=== PATIENT | female | born 1995 | race Caucasian/White ===

== ENCOUNTER 2017-05-05 09:54 | Emergency (ER) | payer OTHER ==
--- NOTE | 2017-05-05 10:37 | ER ---
Nurse's Notes [facility] Name: Debbie Walters Age: 21 yrs Sex: Female : 1995 Arrival Date: 05/05/2017 Time: 09:59 Bed 16 Private MD: Diagnosis: Cellulitis and acute lymphangitis, unspecified;Abrasion, left lower leg;Cystitis Presentation: 05/05 10:09 Presenting complaint: Patient states: pt reports playing softball on Thursday, slid and jl7 got an abrasion to LLE. Area started swelling yesterday. Transition of care: patient was not received from another setting of care. Onset of symptoms was May 03, 2017. Care prior to arrival: Medication(s) given: Aleve at 0900. 10:09 Method Of Arrival: Ambulatory jl7 10:09 Acuity: TRAE 4 jl7 Triage Assessment: 10:05 General: Appears in no apparent distress. uncomfortable, Behavior is calm, cooperative, jl7 appropriate for age. Pain: Complains of pain in left lateral ankle Pain does not radiate. Pain currently is 5 out of 10 on a pain scale. Quality of pain is described as throbbing, Pain began 2-3 days ago. Is continuous, Aggravated by weight bearing. Neuro: Level of Consciousness is awake, alert, obeys commands, Oriented to person, place, time, situation. Cardiovascular: Patient's skin is warm and dry. Respiratory: Airway is patent Respiratory effort is even, unlabored, Respiratory pattern is regular, symmetrical. Derm: Skin is pink, warm \T\ dry. Musculoskeletal: Range of motion: limited in left ankle. Injury Description: Abrasion sustained to lateral aspect of left calf and left lateral ankle is scabbed, mild oozing noted to lower abrasion. Redness, swelling and heat noted to left ankle. DRAGGER OUT: 10:08 LMP 04/23/2017 jl7 Historical: - Allergies: 10:12 No Known Allergies; jl7 - Home Meds: 10:12 None [Active]; jl7 - PMHx: 10:12 None; jl7 - PSHx: 10:12 Cholecystectomy; jl7 - Immunization history:: Adult Immunizations up to date, Last tetanus immunization: unknown. - Social history:: Smoking status: Patient/guardian denies using tobacco, Patient uses alcohol, only on a social basis. Screenin:13 Abuse screen: Denies threats or abuse. Denies injuries from another. Nutritional jtb screening: No deficits noted. Tuberculosis screening: No symptoms or risk factors identified. Fall Risk None identified. Assessment: 10:13 General: Appears in no apparent distress. comfortable, Behavior is calm, cooperative, jtb appropriate for age. Pain: Complains of pain in left lateral ankle Pain radiates to left foot Pain currently is 3 out of 10 on a pain scale. at worst was 5 out of 10 on a pain scale. Quality of pain is described as dull, throbbing, Pain began 1 day ago. Is continuous, Alleviated by rest. Neuro: Level of Consciousness is awake, alert, obeys commands, Oriented to person, place, time, situation. Cardiovascular: Patient's skin is warm and dry. Respiratory: Airway is patent Respiratory effort is even, unlabored, Respiratory pattern is regular, symmetrical. GI: No signs and/or symptoms were reported involving the gastrointestinal system. : No signs and/or symptoms were reported regarding the genitourinary system. EENT: No signs and/or symptoms were reported regarding the EENT system. Derm: Skin is pink, warm \T\ dry. Musculoskeletal: Range of motion: limited in left ankle. Injury Description: Abrasion sustained to lateral aspect of left calf and left lateral ankle is scabbed, Redness, swelling, heat, and oozing noted. 11:03 Reassessment: Patient and/or family updated on plan of care and expected duration. Pain jtb level reassessed. Patient is alert, oriented x 3, equal unlabored respirations, skin warm/dry/pink. Patient states feeling better. Vital Signs: 10:08 BP 126 / 86; Pulse 96; Resp 16 S; Temp 97.5(O); Pulse Ox 100% on R/A; Weight 54.88 kg jl7 (R); Height 5 ft. 0 in. (152.40 cm) (R); Pain 5/10; 11:03 BP 101 / 57; Pulse 77; Resp 16 S; Pulse Ox 100% on R/A; Pain 3/10; jtb 10:08 Body Mass Index 23.63 (54.88 kg, 152.40 cm) jl7 ED Course: 09:59 Patient arrived in ED. mr 10:08 Arm band placed on right wrist. jl7 10:09 Rebolledo, Jahala, RN is Primary Nurse. jl7 10:11 Triage completed. jl7 10:13 Jasper Scott MD is Attending Physician. [facility] 10:13 Patient has correct armband on for positive identification. Bed in low position. Call jtb light in reach. Side rails up X 1. Pulse ox on. NIBP on. 10:35 Giuseppe Hill MD is Referral Physician. kevin 11:11 No provider procedures requiring assistance completed. Patient did not have IV access jtb during this emergency room visit. Administered Medications: 10:27 CANCELLED (Duplicate Order): KeFLEX 500 mg PO once kevin 10:40 CANCELLED (Duplicate Order): Clindamycin 300 mg PO once kevin 10:49 Drug: Doxycycline 200 mg Route: PO; jl7 11:00 Follow up: Response: No adverse reaction; Medication administered at discharge. jl7 10:51 Drug: Augmentin 875 mg Route: PO; jl7 11:00 Follow up: Response: Medication administered at discharge. jl7 10:52 Drug: Bactroban Ointment 2 % 1 application Route: Topical; Site: affected area; jl7 15:10 Follow up: Response: No adverse reaction; Medication administered at discharge. jl7 Outcome: 10:36 Discharge ordered by . kevin 11:11 Discharged to home ambulatory. jtb 11:11 Condition: stable 11:11 Discharge instructions given to patient, Instructed on discharge instructions, follow up and referral plans. medication usage, Demonstrated understanding of instructions, follow-up care, medications, Prescriptions given X 4. 11:12 Patient left the ED. jtb 11:12 Attestation : I agree with everything documented by Sean Rivera, Student Nurse. jl7 Signatures: Jasper Scott MD MD cha Rivera, Maria mr Prashanth Rebolledo, RN RN Sean Perry Corrections: (The following items were deleted from the chart) 10:24 10:13 Injury Description: Abrasion sustained to lateral aspect of left calf and left jl7 lateral ankle is scabbed, jtb 10:28 10:13 Musculoskeletal: No signs and/or symptoms reported regarding the musculoskeletal jtb system. jtb 10:28 10:13 Injury Description: Abrasion sustained to lateral aspect of left calf and left jtb lateral ankle is scabbed, jl7
--- NOTE | 2017-05-05 10:37 | EDPHYS ---
Physician Documentation [facility] Name: Debbie Walters Age: 21 yrs Sex: Female : 1995 Arrival Date: 05/05/2017 Time: 09:59 Bed 16 Private MD: ED Physician Jasper Scott HPI: 05/05 10:33 This 21 yrs old Female presents to ER via Ambulatory with complaints of Wound kevin Infection. 10:33 The patient presents to the emergency department after a known overdose. 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 - Social history:: Smoking status: Patient/guardian denies using tobacco, Patient uses alcohol, only on a social basis. ROS: 10:33 Constitutional: Negative for fever, chills, and weight loss, Eyes: Negative for injury, kevin pain, redness, and discharge, ENT: Negative for injury, pain, and discharge, Neck: Negative for injury, pain, and swelling, Cardiovascular: Negative for chest pain, palpitations, and edema, Respiratory: Negative for shortness of breath, cough, wheezing, and pleuritic chest pain, Abdomen/GI: Negative for abdominal pain, nausea, vomiting, diarrhea, and constipation, Back: Negative for injury and pain, : Negative for injury, bleeding, discharge, and swelling, Neuro: Negative for headache, weakness, numbness, tingling, and seizure, Psych: Negative for depression, anxiety, suicide ideation, homicidal ideation, and hallucinations, Allergy/Immunology: Negative for hives, rash, and allergies, Endocrine: Negative for neck swelling, polydipsia, polyuria, polyphagia, and marked weight changes, Hematologic/Lymphatic: Negative for swollen nodes, abnormal bleeding, and unusual bruising. 10:33 MS/extremity: Positive for abrasion, pain, swelling, tenderness, of the lateral aspect of left calf, left lateral ankle, lateral aspect of left foot and anterior aspect of left ankle. Exam: 10:33 Constitutional: This is a well developed, well nourished patient who is awake, alert, kevin and in no acute distress. Head/Face: Normocephalic, atraumatic. Eyes: Pupils equal round and reactive to light, extra-ocular motions intact. Lids and lashes normal. Conjunctiva and sclera are non-icteric and not injected. Cornea within normal limits. Periorbital areas with no swelling, redness, or edema. ENT: Nares patent. No nasal discharge, no septal abnormalities noted. Tympanic membranes are normal and external auditory canals are clear. Oropharynx with no redness, swelling, or masses, exudates, or evidence of obstruction, uvula midline. Mucous membranes moist. Neck: Trachea midline, no thyromegaly or masses palpated, and no cervical lymphadenopathy. Supple, full range of motion without nuchal rigidity, or vertebral point tenderness. No Meningismus. Chest/axilla: Normal chest wall appearance and motion. Nontender with no deformity. No lesions are appreciated. Cardiovascular: Regular rate and rhythm with a normal S1 and S2. No gallops, murmurs, or rubs. Normal PMI, no JVD. No pulse deficits. Respiratory: Lungs have equal breath sounds bilaterally, clear to auscultation and percussion. No rales, rhonchi or wheezes noted. No increased work of breathing, no retractions or nasal flaring. Abdomen/GI: Soft, non-tender, with normal bowel sounds. No distension or tympany. No guarding or rebound. No evidence of tenderness throughout. Back: No spinal tenderness. No costovertebral tenderness. Full range of motion. Pelvic Exam: Normal external genitalia. Speculum exam with closed cervical os, no discharge or bleeding noted. Bimanual exam with normal adnexa, no adnexal or cervical motion tenderness. Normal uterus. Female : Normal external genitalia. Neuro: Awake and alert, GCS 15, oriented to person, place, time, and situation. Cranial nerves II-XII grossly intact. Motor strength 5/5 in all extremities. Sensory grossly intact. Cerebellar exam normal. Normal gait. Psych: Awake, alert, with orientation to person, place and time. Behavior, mood, and affect are within normal limits. 10:33 Skin: cellulitis, that is mild, induration, that is mild is noted, injury, abrasion(s), small abrasion noted, moderate sized abrasion noted. Vital Signs: 10:08 BP 126 / 86; Pulse 96; Resp 16 S; Temp 97.5(O); Pulse Ox 100% on R/A; Weight 54.88 kg 7 (R); Height 5 ft. 0 in. (152.40 cm) (R); Pain 5/10; 11:03 BP 101 / 57; Pulse 77; Resp 16 S; Pulse Ox 100% on R/A; Pain 3/10; jtb 10:08 Body Mass Index 23.63 (54.88 kg, 152.40 cm) [facility] MDM: 10:13 Patient medically screened. [facility] 10:40 Data reviewed: vital signs, nurses notes, lab test result(s), urinalysis, bacteruria. [facility] 05/05 10:46 Order name: Urine Dipstick--Ancillary (enter results) [facility] 05/05 10:46 Order name: Urine --Ancillary (enter results) [facility] 05/05 10:26 Order name: Urine Dipstick-Ancillary (obtain specimen); Complete Time: 10:43 [facility] 05/05 10:26 Order name: Urine Test (obtain specimen); Complete Time: 10:43 [facility] 05/05 10:27 Order name: Wound dressing; Complete Time: 10:54 [facility] Administered Medications: 10:27 CANCELLED (Duplicate Order): KeFLEX 500 mg PO once [facility] 10:40 CANCELLED (Duplicate Order): Clindamycin 300 mg PO once [facility] 10:49 Drug: Doxycycline 200 mg Route: PO; [facility] 11:00 Follow up: Response: No adverse reaction; Medication administered at discharge. [facility] 10:51 Drug: Augmentin 875 mg Route: PO; [facility] 11:00 Follow up: Response: Medication administered at discharge. [facility] 10:52 Drug: Bactroban Ointment 2 % 1 application Route: Topical; Site: affected area; [facility] 15:10 Follow up: Response: No adverse reaction; Medication administered at discharge. [facility] Disposition: 05/05/17 10:36 Discharged to Home. Impression: Cellulitis and acute lymphangitis, unspecified, Abrasion, left lower leg, Cystitis. - Condition is Stable. - Discharge Instructions: Abrasion, Cellulitis, Dysuria, Cellulitis, [id number], Abrasion, [id number]. - Prescriptions for Bactroban 2 % Topical Ointment - Apply to affected area 1 application by TOPICAL route every 12 hours; 30 gram. Tylenol- Codeine #3 300-30 mg Oral Tablet - take 2 tablets by ORAL route every 6 hours As needed; 20 tablet. Doxycycline Hyclate 100 mg Oral Tablet - take 1 tablet by ORAL route every 12 hours; 20 tablet. Augmentin 875- 125 mg Oral Tablet - take 1 tablet by ORAL route every 12 hours for 7 days; 14 tablet. - Medication Reconciliation Form, Thank You Letter, Antibiotic Education, Presription Opioid Use form. - Follow up: Private Physician; When: 2 - 3 days; Reason: Recheck today's complaints, Continuance of care, Re-evaluation by your physician. Follow up: Giuseppe Hill MD; When: 2 - 3 days; Reason: Recheck today's complaints, Re-evaluation by your physician. - Problem is new. - Symptoms have improved. Signatures: Dispatcher [employer] EDJasper Guerra MD MD cha Leal, Jahala, RN RN jl7 Sean Rivera Corrections: (The following items were deleted from the chart) 10:27 10:26 KeFLEX 500 mg PO once ordered. kevin brown 10:40 10:33 Clindamycin 300 mg PO once ordered. kevin brown
[2017-05-05] MEDS ORDERED: DOXYCYCLINE 100 MG CAP PO ONE (10:54)
[2017-05-05] MEDS ORDERED: MUPIROCIN 2% OINT 22GM TUBE TOP ONE (10:55)
[2017-05-05 10:59] LABS: Urine Blood TRACE (NEG); Urine Glucose NEGATIVE (NEG); Urine Protein 1+ (NEG); Urine Specific Gravity 1.025 (1.005-1.030); Urine pH 5.5 (5.0-7.0)
[2017-05-05] MEDS ORDERED: AMOX/K CLAV 875 MG TAB ONE (11:04)
== END 2017-05-05 11:12 | disposition home or self-care (01) ==
LOC: ER 09:54
DX: L03.116 Cellulitis of left lower limb (principal); N30.90 Cystitis, unspecified without hematuria; W01.0XXA Fall on same level from slipping, tripping and stumbling without subsequent striking against object, initial encounter; Y92.320 Baseball field as the place of occurrence of the external cause; Y99.8 Other external cause status; Y93.64 Activity, baseball
CPT/HCPCS: 81003; 81025; 99283